=== PATIENT | male | born 1970 | race Two or more races ===

== ENCOUNTER 2020-08-05 10:31 | Emergency (ER) | payer OTHER ==
[~2020-08-05] VITALS: Ht 177.8 cm; Wt 88.5 kg
[~2020-08-05 10:31] MED LIST: AMOXICILLIN500 M1 PO; IBUPROFEN800 MG PO; TAMS0.4C PO; TUSSIONEX PENNKI5 ML PO; TYLENOL EXTRA500 MG PO; ZITHROMAX500 MG PO; ZOFRAN4 MG PO; [UNRECOGNIZED DRUG - REMARK] PO
[2020-08-05] MEDS ORDERED: VISTARIL50 MG PO (12:28)
== END 2020-08-05 12:33 | disposition home or self-care (01) ==
LOC: ER 10:31
DX: R00.2 Palpitations (principal); R07.89 Other chest pain; F41.0 Panic disorder [episodic paroxysmal anxiety]; Z03.818 Encounter for observation for suspected exposure to other biological agents ruled out